=== PATIENT | male | born 1940 | race Caucasian/White ===

== ENCOUNTER 2022-05-16 05:34 | Inpatient (IN) | payer MEDICARE ==
[~2022-05-16] VITALS: Ht 167.6 cm; Wt 83.5 kg
[2022-05-16 05:35] VITALS: BP_SYST 112
[2022-05-16 06:48] LABS: BASOPHILS % (AUTO) 0.2 % (0.0-2.0); EOSINOPHILS # (AUTO) 0.1 K/uL (0.0-0.4); EOSINOPHILS % (AUTO) 0.8 % (0.0-4.0); HEMATOCRIT 37.4 % (36-54); HEMOGLOBIN 12.2 g/dL (14.0-18.0); LYMPHOCYTES # (AUTO) 1.4 K/uL (1.0-5.5); LYMPHOCYTES % (AUTO) 11.9 % (20.5-51.5); MEAN CORPUSCULAR HEMOGLOBIN 30 pg (27-31); MEAN CORPUSCULAR HGB CONC 33 % (32-36); MEAN CORPUSCULAR VOLUME 92 fL (79.0-98.0); MONOCYTES # (AUTO) 0.7 K/uL (0.0-1.0); MONOCYTES % (AUTO) 5.9 % (1.7-9.3); NEUTROPHILS # (AUTO) 9.3 K/uL (1.8-7.7); NEUTROPHILS % (AUTO) 81.2 % (40.0-70.0); PLATELET COUNT (AUTO) 235 K/uL (130-430); RED BLOOD CELL COUNT(AUTO) 4.07 MIL/uL (4.2-6.2); RED CELL DISTRIBUTION WIDTH 17.3 % (9.0-15.0); WHITE BLOOD COUNT (AUTO) 11.4 K/uL (4.8-10.8)
[2022-05-16] MEDS ORDERED: MORPHINE 2 MG/ML INJ. SYRINGE IVP ONE (07:00)
[2022-05-16] MEDS ORDERED: ASPIRIN 81 MG TABLET(ECOTRIN) PO ONE (07:00)
[2022-05-16 07:15] LABS: PROTHROMBIN TIME 10.4 SECS (9.5-12.5)
[2022-05-16 07:17] LABS: ANION GAP 7 (5-15); CALCIUM 8.5 mg/dL (8.4-11.0); CHLORIDE 103 mmol/L (98-107); GLUCOSE 170 mg/dL (70-99); UREA NITROGEN, BLOOD 17 mg/dL (8-21)
[2022-05-16 07:37] LABS: ALANINE AMINOTRANSFERASE 157 U/L (12-78); ALBUMIN 2.9 g/dL (3.4-4.8); ASPARTATE AMINOTRANSFERASE 217 U/L (10-37); DIGOXIN 0.7 ng/mL (0.80-2.00); TOTAL BILIRUBIN 1.2 mg/dL (0.0-1.0)
[2022-05-16] MEDS ORDERED: ONDANSETRON HCL 4 MG/2 ML VIAL ONE (07:59)
[2022-05-16] MEDS ORDERED: ONDANSETRON HCL 4 MG/2 ML VIAL IVP ONE (08:00)
[2022-05-16] MEDS ORDERED: ATOR40TA68 PO (10:33)
[2022-05-16] MEDS ORDERED: DIGO125T20 PO (10:41)
[2022-05-16] MEDS ORDERED: COR25 PO (10:41)
[2022-05-16] MEDS ORDERED: ASPI-859 PO (10:41)
[2022-05-16] MEDS ORDERED: POTA10TA58 PO (10:41)
[2022-05-16] MEDS ORDERED: DORZ10DR8 EACH EYE (10:41)
[2022-05-16] MEDS ORDERED: FURO-149 PO (10:41)
[2022-05-16] MEDS ORDERED: FERR325T91 PO (10:41)
[2022-05-16] MEDS ORDERED: NITR0.4T47 SL (10:41)
[2022-05-16] MEDS ORDERED: DABI150C PO (10:41)
[2022-05-16] MEDS ORDERED: ACETAMINOPHEN 500 MG TABLET PO ONE ×2 (12:00→22:30)
[2022-05-16] MEDS: NITROGLYCERIN 1 INCH (GM) OINT. TP SCH ×2 (12:00→18:50)
[2022-05-16 15:55] VITALS: BP_SYST 109
[2022-05-16 18:16] LABS: CKMB RELATIVE INDEX 8.8 (0.0-2.9); CREATINE KINASE MB 128.4 ng/mL (0-3.6)
[2022-05-16] MEDS ORDERED: NITROGLYCERIN 0.4 MG TAB.SUBL SL PRN (18:30)
[2022-05-16 20:00] VITALS: BP_SYST 117
[2022-05-16] MEDS: DABIGATRAN ETEXILATE MESYLATE 75 MG CAPSULE PO SCH (20:40)
[2022-05-16] MEDS: POTASSIUM CHLORIDE 10 MEQ TAB.PRT.SR PO SCH (20:40)
[2022-05-16] MEDS: CARVEDILOL 25 MG TABLET (COREG) PO SCH (20:41)
[2022-05-16] MEDS: ONDANSETRON HCL 4 MG/2 ML VIAL IVP PRN (21:11)
[2022-05-16] MEDS: MORPHINE 2 MG/ML INJ. SYRINGE IVP PRN (23:00)
[2022-05-16] MEDS ORDERED: NALOXONE HCL 0.4 MG/ML AMP (NARCAN) IVP PRN (23:00)
[2022-05-17] VITALS: BP_SYST 118
[2022-05-17] MEDS: NITROGLYCERIN 1 INCH (GM) OINT. TP SCH ×4 (00:27→11:57)
[2022-05-17] MEDS: ONDANSETRON HCL 4 MG/2 ML VIAL IVP PRN ×2 (05:42→20:53)
[2022-05-17] MEDS: CARVEDILOL 25 MG TABLET (COREG) PO SCH ×2 (09:00→21:00)
[2022-05-17] MEDS: FERROUS SULFATE 325 MG TABLET.DR PO SCH (09:54)
[2022-05-17] MEDS: POTASSIUM CHLORIDE 10 MEQ TAB.PRT.SR PO SCH ×2 (09:54→21:03)
[2022-05-17] MEDS: ATORVASTATIN 20 MG TABLET PO SCH (09:54)
[2022-05-17] MEDS: ASPIRIN 81 MG TABLET(ECOTRIN) PO SCH (09:55)
[2022-05-17] MEDS: DIGOXIN 0.125 MG TABLET PO SCH (09:55)
[2022-05-17] MEDS: FUROSEMIDE 40 MG TABLET PO SCH (09:56)
[2022-05-17] MEDS: DABIGATRAN ETEXILATE MESYLATE 75 MG CAPSULE PO SCH (09:58)
[2022-05-17] MEDS ORDERED: PANTOPRAZOLE SODIUM 40 MG TAB PO ONE (10:15)
[2022-05-17 12:00] VITALS: BP_SYST 92
[2022-05-17] MEDS ORDERED: *LOVENOX 1MG/KG Q12H/PHARMACY XX ONE (15:45)
[2022-05-17 16:00] VITALS: BP_SYST 88
[2022-05-17 20:00] VITALS: BP_SYST 102
[2022-05-17] MEDS: MORPHINE 2 MG/ML INJ. SYRINGE IVP PRN (20:53)
[2022-05-17] MEDS: ENOXAPARIN SODIUM 60 MG/0.6 ML SYRINGE SUBCUT SCH (21:03)
[2022-05-18] VITALS (11 sets, daily range): BP systolic 92–100
[2022-05-18] MEDS: NITROGLYCERIN 1 INCH (GM) OINT. TP SCH (00:40)
[2022-05-18 06:41] LABS: BASOPHILS # (AUTO) 0.1 K/uL (0.0-0.2); BASOPHILS % (AUTO) 0.3 % (0.0-2.0); EOSINOPHILS # (AUTO) 0.1 K/uL (0.0-0.4); EOSINOPHILS % (AUTO) 0.7 % (0.0-4.0); HEMOGLOBIN 13.2 g/dL (14.0-18.0); LYMPHOCYTES # (AUTO) 1.1 K/uL (1.0-5.5); LYMPHOCYTES % (AUTO) 5.5 % (20.5-51.5); MEAN CORPUSCULAR HEMOGLOBIN 31 pg (27-31); MEAN CORPUSCULAR HGB CONC 32 % (32-36); MEAN CORPUSCULAR VOLUME 95 fL (79.0-98.0); MONOCYTES # (AUTO) 1.5 K/uL (0.0-1.0); MONOCYTES % (AUTO) 7.8 % (1.7-9.3); NEUTROPHILS % (AUTO) 85.7 % (40.0-70.0); PLATELET COUNT (AUTO) 275 K/uL (130-430); RED BLOOD CELL COUNT(AUTO) 4.31 MIL/uL (4.2-6.2); RED CELL DISTRIBUTION WIDTH 17.8 % (9.0-15.0); WHITE BLOOD COUNT (AUTO) 19.8 K/uL (4.8-10.8)
[2022-05-18] MEDS: ATORVASTATIN 20 MG TABLET PO SCH (08:37)
[2022-05-18] MEDS: FERROUS SULFATE 325 MG TABLET.DR PO SCH (08:38)
[2022-05-18] MEDS: DIGOXIN 0.125 MG TABLET PO SCH (08:38)
[2022-05-18] MEDS: POTASSIUM CHLORIDE 10 MEQ TAB.PRT.SR PO SCH (08:38)
[2022-05-18] MEDS: PANTOPRAZOLE SODIUM 40 MG TAB PO SCH (08:38)
[2022-05-18] MEDS: FUROSEMIDE 40 MG TABLET PO SCH (08:39)
[2022-05-18] MEDS: ASPIRIN 81 MG TABLET(ECOTRIN) PO SCH (08:39)
[2022-05-18] MEDS: CARVEDILOL 25 MG TABLET (COREG) PO SCH ×2 (08:41→20:23)
[2022-05-18] MEDS: ENOXAPARIN SODIUM 60 MG/0.6 ML SYRINGE SUBCUT SCH ×2 (09:00→20:26)
[2022-05-18 09:55] LABS: ALANINE AMINOTRANSFERASE 1303 U/L (12-78); ALBUMIN 3.3 g/dL (3.4-4.8); ANION GAP 15 (5-15); ASPARTATE AMINOTRANSFERASE 1625 U/L (10-37); CALCIUM 9.3 mg/dL (8.4-11.0); CHLORIDE 93 mmol/L (98-107); CHOLESTEROL 85 mg/dL (<200); CREATININE 3.29 mg/dL (0.55-1.30); GLUCOSE 122 mg/dL (70-99); HDL CHOLESTEROL 31 mg/dL (>45); TOTAL BILIRUBIN 3.6 mg/dL (0.0-1.0); TRIGLYCERIDES 121 mg/dL (30-150); UREA NITROGEN, BLOOD 62 mg/dL (8-21)
[2022-05-18] MEDS ORDERED: SODIUM POLYSTYRENE SULFONATE 15 GM/60 ML UDBTL PO ONE ×2 (10:45→14:15)
[2022-05-18] MEDS ORDERED: SODIUM BICARBONATE 8.4% JECT 50 MEQ/50 ML SYRINGE IVP ONE (14:15)
[2022-05-18] MEDS: D5/0.45 NS 1,000 ML IV SCH (15:12)
[2022-05-18] MEDS: PIPERACILLIN/TAZO 2.25G/DEX-IS 50 ML IV SCH ×2 (17:43→21:28)
[2022-05-18 17:56] LABS: ALANINE AMINOTRANSFERASE 1525 U/L (12-78); ALBUMIN 3.4 g/dL (3.4-4.8); ANION GAP 17 (5-15); CALCIUM 9.4 mg/dL (8.4-11.0); CHLORIDE 96 mmol/L (98-107); CREATININE 3.73 mg/dL (0.55-1.30); GLUCOSE 143 mg/dL (70-99); TOTAL BILIRUBIN 4.1 mg/dL (0.0-1.0); UREA NITROGEN, BLOOD 71 mg/dL (8-21)
[2022-05-18] MEDS ORDERED: PIPERACILLIN/TAZO 3.375/DEX-IS 50 ML IV SCH (18:00)
[2022-05-18] MEDS: INSULIN REGULAR, HUMAN 100 UNITS/ML, 3 ML VIAL (humuLIN R) SUBCUT PRN ×2 (18:00→21:31)
[2022-05-18 18:25] LABS: ASPARTATE AMINOTRANSFERASE 2244 U/L (10-37)
[2022-05-18 19:15] LABS: BILIRUBIN,URINE 2+ (NEGATIVE); BLOOD, URINE NEGATIVE (NEGATIVE); GLUCOSE,URINE NEGATIVE (NEGATIVE); KETONES,URINE TRACE (NEGATIVE); LEUKOCYTE ESTERASE ,URINE NEGATIVE (NEGATIVE); NITRITE, URINE NEGATIVE (NEGATIVE); PROTEIN URINE 1+ (NEGATIVE)
[2022-05-18] MEDS ORDERED: ONDANSETRON HCL 4 MG/2 ML VIAL IVP PRN (19:15)
[2022-05-18 19:46] LABS: CLARITY/URINE SLIGHTLY HAZY (CLEAR); COLOR,URINE AMBER (YELLOW)
[2022-05-18 20:12] LABS: BACTERIA,URINE FEW /HPF (None Seen); RBC,URINE 0-3 /HPF (0-3); WBC,URINE 0-3 /HPF (0-3)
[2022-05-18 20:13] LABS: CALCIUM OXALATE CRYSTALS,UR 0-10 /HPF (None Seen); MUCUS,URINE None Seen /LPF (None Seen)
[2022-05-18] MEDS: LevALBUTEROL HCL 1.25 MG/0.5 ML *CONC.* VIAL.NEB (XOPENEX CONC.) INH PRN (20:56)
[2022-05-19] VITALS (21 sets, daily range): BP systolic 85–121
[2022-05-19] MEDS: LevALBUTEROL HCL 1.25 MG/0.5 ML *CONC.* VIAL.NEB (XOPENEX CONC.) INH PRN ×2 (04:18→11:42)
[2022-05-19] MEDS: D5/0.45 NS 1,000 ML IV SCH ×2 (04:26→12:13)
[2022-05-19] MEDS: MORPHINE 2 MG/ML INJ. SYRINGE IVP PRN ×2 (04:26→11:58)
[2022-05-19] MEDS: PIPERACILLIN/TAZO 2.25G/DEX-IS 50 ML IV SCH ×3 (07:01→18:57)
[2022-05-19 07:38] LABS: BASOPHILS % (AUTO) 0.1 % (0.0-2.0); HEMATOCRIT 38.9 % (36-54); HEMOGLOBIN 12.5 g/dL (14.0-18.0); LYMPHOCYTES # (AUTO) 0.8 K/uL (1.0-5.5); LYMPHOCYTES % (AUTO) 4.3 % (20.5-51.5); MEAN CORPUSCULAR HEMOGLOBIN 30 pg (27-31); MEAN CORPUSCULAR HGB CONC 32 % (32-36); MEAN CORPUSCULAR VOLUME 93 fL (79.0-98.0); MONOCYTES # (AUTO) 1.5 K/uL (0.0-1.0); MONOCYTES % (AUTO) 8.1 % (1.7-9.3); NEUTROPHILS # (AUTO) 15.9 K/uL (1.8-7.7); NEUTROPHILS % (AUTO) 87.5 % (40.0-70.0); PLATELET COUNT (AUTO) 164 K/uL (130-430); RED BLOOD CELL COUNT(AUTO) 4.19 MIL/uL (4.2-6.2); RED CELL DISTRIBUTION WIDTH 17.6 % (9.0-15.0); WHITE BLOOD COUNT (AUTO) 18.2 K/uL (4.8-10.8)
[2022-05-19 07:52] LABS: ANION GAP 12 (5-15); CALCIUM 8.7 mg/dL (8.4-11.0); CHLORIDE 92 mmol/L (98-107); CREATININE 3.79 mg/dL (0.55-1.30); GLUCOSE 86 mg/dL (70-99); UREA NITROGEN, BLOOD 81 mg/dL (8-21)
[2022-05-19 08:17] LABS: ALANINE AMINOTRANSFERASE 1575 U/L (12-78); ALBUMIN 3.2 g/dL (3.4-4.8); ASPARTATE AMINOTRANSFERASE 1757 U/L (10-37); INR 2.7 (0.80-1.20); LIPASE 49 U/L (73-393); PROTHROMBIN TIME 26.3 SECS (9.5-12.5); TOTAL BILIRUBIN 4.8 mg/dL (0.0-1.0)
[2022-05-19 08:53] LABS: CREATINE KINASE MB 84.5 ng/mL (0-3.6)
[2022-05-19] MEDS: ASPIRIN 81 MG TABLET(ECOTRIN) PO SCH (08:59)
[2022-05-19] MEDS: PANTOPRAZOLE SODIUM 40 MG TAB PO SCH (08:59)
[2022-05-19] MEDS: FERROUS SULFATE 325 MG TABLET.DR PO SCH (08:59)
[2022-05-19] MEDS: ATORVASTATIN 20 MG TABLET PO SCH (09:00)
[2022-05-19] MEDS: CARVEDILOL 25 MG TABLET (COREG) PO SCH ×2 (09:00→21:00)
[2022-05-19] MEDS: FUROSEMIDE 40 MG TABLET PO SCH (09:00)
[2022-05-19] MEDS: ENOXAPARIN SODIUM 60 MG/0.6 ML SYRINGE SUBCUT SCH (09:05)
[2022-05-19] MEDS: INSULIN REGULAR, HUMAN 100 UNITS/ML, 3 ML VIAL (humuLIN R) SUBCUT PRN (12:11)
[2022-05-19] MEDS ORDERED: D5NS 1,000 ML IV SCH (13:30)
[2022-05-19] MEDS ORDERED: NOREPINEPHRINE BITARTRATE 4 MG in NS 246 ML IV PRN (14:30)
[2022-05-20] VITALS (21 sets, daily range): BP systolic 74–126
[2022-05-20] MEDS: ENOXAPARIN SODIUM 60 MG/0.6 ML SYRINGE SUBCUT SCH ×2 (01:52→08:11)
[2022-05-20] MEDS: PIPERACILLIN/TAZO 2.25G/DEX-IS 50 ML IV SCH ×2 (01:52→06:20)
[2022-05-20] MEDS: MORPHINE 2 MG/ML INJ. SYRINGE IVP PRN (05:04)
[2022-05-20 07:52] LABS: ALANINE AMINOTRANSFERASE 1585 U/L (12-78); ALBUMIN 2.8 g/dL (3.4-4.8); ANION GAP 18 (5-15); ASPARTATE AMINOTRANSFERASE 1532 U/L (10-37); CALCIUM 7.5 mg/dL (8.4-11.0); CHLORIDE 87 mmol/L (98-107); CREATININE 3.91 mg/dL (0.55-1.30); GLUCOSE 146 mg/dL (70-99); TOTAL BILIRUBIN 5.8 mg/dL (0.0-1.0); UREA NITROGEN, BLOOD 93 mg/dL (8-21)
[2022-05-20] MEDS: ASPIRIN 81 MG TABLET(ECOTRIN) PO SCH (08:07)
[2022-05-20] MEDS: FUROSEMIDE 40 MG TABLET PO SCH (08:08)
[2022-05-20] MEDS: PANTOPRAZOLE SODIUM 40 MG TAB PO SCH (08:09)
[2022-05-20] MEDS: FERROUS SULFATE 325 MG TABLET.DR PO SCH (08:09)
[2022-05-20] MEDS: ATORVASTATIN 20 MG TABLET PO SCH (08:09)
[2022-05-20] MEDS: CARVEDILOL 25 MG TABLET (COREG) PO SCH (08:10)
[2022-05-20] MEDS ORDERED: PROPOFOL DRIP 0 ML IV ONE (10:32)
[2022-05-20] MEDS ORDERED: FENTANYL CITRATE-0.9 % NACL/PF 100 ML IV ONE (10:54)
[2022-05-20] MEDS ORDERED: FENTANYL CITRATE-0.9 % NACL/PF 100 ML IV PRN (11:15)
[2022-05-20] MEDS ORDERED: NOREPINEPHRINE 4 MG/4 ML VIAL IV ONE (12:10)
[2022-05-20 12:31] LABS: BASOPHILS % (AUTO) 0.2 % (0.0-2.0); HEMATOCRIT 31.9 % (36-54); HEMOGLOBIN 10.4 g/dL (14.0-18.0); LYMPHOCYTES # (AUTO) 0.4 K/uL (1.0-5.5); LYMPHOCYTES % (AUTO) 3.4 % (20.5-51.5); MEAN CORPUSCULAR HEMOGLOBIN 30 pg (27-31); MEAN CORPUSCULAR HGB CONC 32 % (32-36); MEAN CORPUSCULAR VOLUME 94 fL (79.0-98.0); MONOCYTES # (AUTO) 0.9 K/uL (0.0-1.0); MONOCYTES % (AUTO) 7.9 % (1.7-9.3); NEUTROPHILS # (AUTO) 10.3 K/uL (1.8-7.7); NEUTROPHILS % (AUTO) 88.5 % (40.0-70.0); PLATELET COUNT (AUTO) 77 K/uL (130-430); RED BLOOD CELL COUNT(AUTO) 3.41 MIL/uL (4.2-6.2); RED CELL DISTRIBUTION WIDTH 17.4 % (9.0-15.0); WHITE BLOOD COUNT (AUTO) 11.6 K/uL (4.8-10.8)
[2022-05-20 12:44] LABS: ANION GAP 14 (5-15); CHLORIDE 88 mmol/L (98-107); CREATININE 4.11 mg/dL (0.55-1.30); GLUCOSE 138 mg/dL (70-99); UREA NITROGEN, BLOOD 92 mg/dL (8-21)
[2022-05-20 12:49] LABS: INR 3.4 (0.80-1.20)
[2022-05-20 13:00] LABS: ALANINE AMINOTRANSFERASE 1371 U/L (12-78); ALBUMIN 2.3 g/dL (3.4-4.8); ASPARTATE AMINOTRANSFERASE 1274 U/L (10-37); TOTAL BILIRUBIN 5.3 mg/dL (0.0-1.0)
[2022-05-20 13:09] LABS: CALCIUM 6.7 mg/dL (8.4-11.0)
[2022-05-20 13:12] LABS: PROTHROMBIN TIME 32.5 SECS (9.5-12.5)
[2022-05-20] MEDS ORDERED: FOLIC ACID 1 MG TABLET PO ONE (13:45)
[2022-05-20] MEDS ORDERED: THIAMINE HCL 100 MG TABLET GT ONE (13:45)
[2022-05-20] MEDS ORDERED: PANTOPRAZOLE SODIUM 40 MG/VIAL (PROTONIX) IVP ONE (13:45)
[2022-05-20] MEDS ORDERED: NACL 0.9% 1,000 ML IV SCH (14:00)
[2022-05-20] MEDS ORDERED: NOREPINEPHRINE BITARTRATE 8 MG in D5W 242 ML IV PRN (14:00)
[2022-05-20] MEDS ORDERED: NACL 0.9% 1,000 ML IV ONE ×3 (14:00→16:00)
[2022-05-20] MEDS ORDERED: HYDROCORTISONE SOD SUCC 100 MG/2 ML VIAL IVP ONE (14:00)
[2022-05-20] MEDS ORDERED: NALOXONE HCL 0.4 MG/ML AMP (NARCAN) IVP PRN (15:30)
[2022-05-20] MEDS ORDERED: MORPHINE SULFATE IN 0.9 % NACL 100 ML IV PRN (15:30)
[2022-05-20] MEDS ORDERED: ROCURONIUM BROMIDE 10 MG/ML (ZEMURON) IV ONE (15:41)
[2022-05-20] MEDS ORDERED: ETOMIDATE 20 MG/ 10 ML VIAL (AMIDATE) IVP ONE (15:41)
[2022-05-20] MEDS ORDERED: HYDROCORTISONE SOD SUCC 100 MG/2 ML VIAL IVP SCH (22:00)
[2022-05-21] MEDS ORDERED: PANTOPRAZOLE SODIUM 40 MG/VIAL (PROTONIX) IVP SCH (09:00)
[2022-05-21] MEDS ORDERED: FOLIC ACID 1 MG TABLET PO SCH (09:00)
[2022-05-21] MEDS ORDERED: THIAMINE HCL 100 MG TABLET GT SCH (09:00)
== END 2022-05-20 21:50 | DRG 871 ==
LOC: SED 05:34 → STU 10:20 → SIC 05-18 16:30
PROVIDERS: ADMIT Family Medicine; ATTEND Family Medicine
PROC: 05H533Z Insertion of Infusion Device into Right Subclavian Vein, Percutaneous Approach (ICD-10-PCS; 2022-05-19)
PROC: B546ZZA Ultrasonography of Right Subclavian Vein, Guidance (ICD-10-PCS; 2022-05-19)
PROC: 02HV33Z Insertion of Infusion Device into Superior Vena Cava, Percutaneous Approach (ICD-10-PCS; principal; 2022-05-20)
PROC: B548ZZA Ultrasonography of Superior Vena Cava, Guidance (ICD-10-PCS; 2022-05-20)
PROC: 0BH17EZ Insertion of Endotracheal Airway into Trachea, Via Natural or Artificial Opening (ICD-10-PCS; 2022-05-20)
PROC: 5A1935Z Respiratory Ventilation, Less than 24 Consecutive Hours (ICD-10-PCS; 2022-05-20)
DX: A41.9 Sepsis, unspecified organism (principal); I21.4 Non-ST elevation (NSTEMI) myocardial infarction; J96.00 Acute respiratory failure, unspecified whether with hypoxia or hypercapnia; N17.0 Acute kidney failure with tubular necrosis; K72.00 Acute and subacute hepatic failure without coma; J18.9 Pneumonia, unspecified organism; R65.21 Severe sepsis with septic shock; I13.0 Hypertensive heart and chronic kidney disease with heart failure and stage 1 through stage 4 chronic kidney disease, or unspecified chronic kidney disease; E66.2 Morbid (severe) obesity with alveolar hypoventilation; I48.20 Chronic atrial fibrillation, unspecified; K55.9 Vascular disorder of intestine, unspecified; D68.9 Coagulation defect, unspecified; I42.9 Cardiomyopathy, unspecified; I24.9 Acute ischemic heart disease, unspecified; E44.1 Mild protein-calorie malnutrition; D64.9 Anemia, unspecified; R57.0 Cardiogenic shock; I25.10 Atherosclerotic heart disease of native coronary artery without angina pectoris; E78.5 Hyperlipidemia, unspecified; Z20.822 Contact with and (suspected) exposure to COVID-19; E87.5 Hyperkalemia; R74.01 Elevation of levels of liver transaminase levels; K74.60 Unspecified cirrhosis of liver; N40.0 Benign prostatic hyperplasia without lower urinary tract symptoms; I50.9 Heart failure, unspecified; N18.9 Chronic kidney disease, unspecified; Z95.5 Presence of coronary angioplasty implant and graft; Z95.0 Presence of cardiac pacemaker; Z87.891 Personal history of nicotine dependence; Z79.899 Other long term (current) drug therapy; Z79.82 Long term (current) use of aspirin; Z68.29 Body mass index [BMI] 29.0-29.9, adult; Z66 Do not resuscitate
CPT/HCPCS: 36415; 36600; 71045; 74018; 76376; 76700-TC; 80053; 80061; 80162; 81000; 82550; 82553; 82803-TC; 82962; 82977; 83605; 83690; 83735; 83880; 84132; 84484; 85025; 85610-TC; 85730-TC; 86738; 87040; 87070-TC; 87081; 87205-TC; 93005; 93306; 94002; 94640; 94660; 94760; 96365; 96375; 99285; G0378; J1650; J1720; J1815; J1956; J2270; J2405; J2543; J2704; J3010; J3490; J7030; J7042; J7060; J7612